=== PATIENT | female | born 1965 | race Caucasian/White ===

== ENCOUNTER 2024-01-07 10:35 | Emergency (ER) | payer OTHER ==
--- NOTE | 2024-01-07 11:10 | ER ---
Nurse's Notes [facility] Name: Gwen Andino Age: 58 yrs Sex: Female : 1965 Arrival Date: 01/07/2024 Time: 10:35 Bed IW3 Private MD: Diagnosis: Cellulitis of left lower limb Presentation: 01/06 10:50 Chief complaint: Patient states: LLE cramping started Monday night. Got swollen, ll1 painful, red, hot to touch since. Sent for further eval. by Urgent Care. Coronavirus screen: Client denies travel out of the [place] in the last 14 days. At this time, the client does not indicate any symptoms associated with coronavirus-19. Ebola Screen: Patient denies travel to an Ebola-affected area in the 21 days before illness onset. Initial Sepsis Screen: Does the patient meet any 2 criteria? No. Patient's initial sepsis screen is negative. Does the patient have a suspected source of infection? No. Patient's initial sepsis screen is negative. Risk Assessment: Do you want to hurt yourself or someone else? Patient reports no desire to harm self or others. Onset of symptoms was January 06, 2024. 10:50 Method Of Arrival: Ambulatory ll1 10:50 Acuity: RISHABH 3 ll1 Triage Assessment: 10:49 General: Appears uncomfortable, ill, Behavior is calm, cooperative, appropriate for ll1 age. General: Reports feeling ill for fatigue for. Pain: Complains of pain in left leg. Neuro: No deficits noted. Cardiovascular: No deficits noted. Derm: Reports redness, pain. Musculoskeletal: Circulation, motion, and sensation intact. Capillary refill < 3 seconds. Historical: - Allergies: 10:52 Sulfa (Sulfonamide Antibiotics); ll1 - PMHx: 10:52 None; ll1 - PSHx: 10:52 Tonsillectomy; section; ll1 - Immunization history:: Adult Immunizations up to date. - Social history:: Smoking status: Patient denies any tobacco usage or history of. Screenin:16 [facility] ED Fall Risk Assessment (Adult) History of falling in the last 3 months, ll1 including since admission No falls in past 3 months (0 pts) Confusion or Disorientation No (0 pts) Intoxicated or Sedated No (0 pts) Impaired Gait No (0 pts) Mobility Assist Device Used No (0 pt) Altered Elimination No (0 pt) Score/Fall Risk Level 0 - 2 = Low Risk Oriented to surroundings, Hourly rounding (assess needs \T\ fall precautionary measures) done. Abuse screen: Denies threats or abuse. Nutritional screening: No deficits noted. Tuberculosis screening: No symptoms or risk factors identified. Assessment: 11:17 Reassessment: No changes from previously documented assessment. Patient and/or family ll1 updated on plan of care and expected duration. Pain level reassessed. Patient is alert, oriented x 3, equal unlabored respirations, skin warm/dry/pink. Vital Signs: 10:50 BP 145 / 96; Pulse 109; Resp 18; Temp 98.9; Pulse Ox 99% ; Weight 92.53 kg; Height 5 ll1 ft. 4 in. ; Pain 8/10; 11:17 BP 141 / 91; Pulse 98; Resp 17; Pulse Ox 99% ; ll1 10:50 Body Mass Index 35.02 (92.53 kg, 162.56 cm) ll1 10:50 Pain Scale: Adult ll1 ED Course: 10:38 Patient arrived in ED. im 10:38 Jo-Ann Monson [facility]-C [facility]. sb4 10:38 Parth Barrett MD is Attending Physician. sb4 10:49 Arm band placed on. ll1 10:52 Triage completed. ll1 11:09 Extremity Venous Uni Ltd US In Process Unspecified. EDMS 11:17 Patient has correct armband on for positive identification. Provided Education on: ll1 finish all prescribed antibiotics. 11:17 No provider procedures requiring assistance completed. Patient did not have IV access ll1 during this emergency room visit. Administered Medications: No medications were administered Medication: 11:17 VIS not applicable for this client. ll1 Outcome: 11:09 Discharge ordered by . sb4 11:17 Discharged to home ambulatory, ll1 11:17 Condition: stable 11:17 Discharge instructions given to patient, Instructed on discharge instructions, follow up and referral plans. Demonstrated understanding of instructions, follow-up care, medications, Prescriptions given X 1, 11:18 Patient left the ED. ll1 Signatures: Dispatcher [employer] EDMS Yamil Van RN RN ll1 Jo-Ann Monson PA-C PA-C sb4 Angela Guerreor im Corrections: (The following items were deleted from the chart) 10:52 10:50 BP 145 / 96; Pulse 109bpm; Resp 18bpm; Pulse Ox 99%; Temp 98.9F; Pain 8/10, ll1 Adult; ll1
--- NOTE | 2024-01-07 11:10 | EDPHYS ---
Physician Documentation [facility] Name: Gwen Andino Age: 58 yrs Sex: Female : 1965 Arrival Date: 01/07/2024 Time: 10:35 Bed IW3 Private MD: ED Physician Parth Barrett HPI: 01/06 10:55 This 58 yrs old Female presents to ER via Ambulatory with complaints of Leg Swelling, sb4 Leg redness. 10:55 Left lower leg swelling and redness began yesterday. States that she initially started sb4 having cramps in her lower leg on Monday and the redness began Monday. She went to urgent care this morning and they sent her here to have an ultrasound to rule out DVT. She denies any recent travel or prolonged immobilization. She is not a smoker. States that her father did have a blood clot but she has no personal history of clots. Denies any chest pain or shortness of breath. Historical: - Allergies: 10:52 Sulfa (Sulfonamide Antibiotics); ll1 - PMHx: 10:52 None; ll1 - PSHx: 10:52 Tonsillectomy; section; ll1 - Immunization history:: Adult Immunizations up to date. - Social history:: Smoking status: Patient denies any tobacco usage or history of. ROS: 10:55 Constitutional: Negative for fever, chills, and weight loss, sb4 10:55 Skin: Positive for erythema, swelling, of the left leg, 10:55 All other systems are negative, Exam: 10:55 Constitutional: This is a well developed, well nourished patient who is awake, alert, sb4 and in no acute distress. Head/Face: Normocephalic, atraumatic. Eyes: Extra-ocular motions intact. Periorbital areas with no swelling, redness, or edema. 10:55 Musculoskeletal/extremity: DVT Exam: pain, swelling, tenderness, erythema, increased warmth, 10:55 Skin: cellulitis, that is moderate, on the lateral aspect of left calf, left lateral ankle, lateral aspect of left foot, left calf, left Achilles, medial aspect of left calf, left medial ankle, medial aspect of left foot, left powell, anterior aspect of left ankle and dorsum of left foot, Vital Signs: 10:50 BP 145 / 96; Pulse 109; Resp 18; Temp 98.9; Pulse Ox 99% ; Weight 92.53 kg; Height 5 ll1 ft. 4 in. ; Pain 8/10; 11:17 BP 141 / 91; Pulse 98; Resp 17; Pulse Ox 99% ; ll1 10:50 Body Mass Index 35.02 (92.53 kg, 162.56 cm) ll1 10:50 Pain Scale: Adult ll1 MDM: 10:47 Patient medically screened. sb4 10:55 Differential diagnosis: DVT, cellulitis. sb4 11:12 Data reviewed: vital signs, nurses notes, radiologic studies, and as a result, I will sb4 discharge patient. Counseling: I had a detailed discussion with the patient and/or guardian regarding the historical points, exam findings, and any diagnostic results supporting the discharge/admit diagnosis, radiology results, to return to the emergency department if symptoms worsen or persist or if there are any questions or concerns that arise at home. 01/06 10:52 Order name: Extremity Venous Uni Ltd sb4 Administered Medications: No medications were administered Disposition Summary: 01/07/24 11:09 Discharge Ordered Notes: Location: Home sb4 Problem: new sb4 Symptoms: are unchanged sb4 Condition: Stable sb4 Diagnosis - Cellulitis of left lower limb sb4 Followup: sb4 - With: Emergency Department - When: As needed - Reason: Trouble breathing, Worsening of condition Discharge Instructions: - Discharge Summary Sheet sb4 - Cellulitis, Adult, [id number] sb4 Forms: - Thank You Letter sb4 - Antibiotic Education sb4 - Patient Portal Instructions sb4 - Leadership Thank You Letter sb4 Prescriptions: - Doxycycline Hyclate 100 mg Oral Tablet - take 1 tablet ORAL route every 12 hours; 20 tablet; Refills: 0, Product sb4 Selection Permitted Signatures: Dispatcher [employer] [facility] Yamil Van RN RN ll1 Jo-Ann Monson PA-C PAAdriana sb4 Corrections: (The following items were deleted from the chart) 10:53 10:53 Extremity Venous Uni Ltd+[email or web address] ordered. [facility] 11:16 10:59 ED course: ultrasound publication designer only. I called publication designer provider directly, sent sb4 straight to voice mail, voice mail box full. sent text. awaiting reply.. sb4
--- NOTE | 2024-01-07 11:18 | RAD REPORT ---
EXAM DESCRIPTION: US - Extremity Venous Uni Ltd - 01/07/2024 11:08 am CLINICAL HISTORY: Left leg swelling, redness pain COMPARISON: None. TECHNIQUE: Real-time sonographic evaluation of the left lower extremity deep venous system was perfo rmed. FINDINGS: Normal compressibility, flow augmentation, phasic flow and spontaneous flow is identified in the left lower extremity deep venous system. No intraluminal filling defects seen. IMPRESSION: No DVT in the left lower extremity.
[2024-01-07 12:14] VITALS: BP 141/91; TEMP 98.9; O2SAT 99
== END 2024-01-07 11:18 | disposition home or self-care (01) ==
LOC: ER 10:35
DX: L03.116 Cellulitis of left lower limb (principal); Z88.2 Allergy status to sulfonamides
CPT/HCPCS: 93971; 99283

== ENCOUNTER 2024-01-09 09:17 | Inpatient (IN) | payer OTHER ==
[2024-01-09] MEDS ORDERED: VANCOMYCIN 1 GM/VIAL ONE ×2 (09:56→13:33)
[2024-01-09] MEDS ORDERED: NA CHLORIDE 0.9% 250 ML ONE ×2 (09:57→13:34)
[2024-01-09 10:07] LABS: Absolute Eosinophils 0.2 K/uL (0-0.5); Absolute Lymphocytes (CBC) 1.5 K/uL (0.7-4.9); Absolute Monocytes 0.8 K/uL (0.1-1.3); Absolute Neutrophil 7.7 K/uL (1.8-8.0); Basophils % 0.3 % (0-1.3); Eosinophils % 1.8 % (0-4.4); Hematocrit 42.8 % (36.0-45.0); Hemoglobin 14.6 g/dL (12.0-15.0); Lymphocytes % 14.5 % (15.3-44.8); MCH 30.9 pg (27.0-35.0); MCHC 34.1 g/dL (32.0-36.0); MCV 90.5 fL (80-100); MPV 7.5 fL (7.6-11.3); Neutrophils % 75.4 % (41.7-73.7); Nucleated Red Blood Cells % 0.1 % (0-0); Platelets 235 thou/uL (152-406); RBC Red Blood Cell Count 4.73 M/uL (3.86-4.86); Red Cell Distribution Width 12.7 % (12.1-15.2)
[2024-01-09 10:25] LABS: Albumin 3.1 g/dL (3.4-5.0); Albumin/Globulin Ratio 0.7 (1.1-1.8); Anion Gap 9.4 mEq/L (5.0-15.0); Bilirubin Total 0.4 mg/dL (0.2-1.0); Globulin 4.6 g/dL (2.3-3.5); Potassium 3.4 mEq/L (3.5-5.1); Protein, Total 7.7 g/dL (6.4-8.2)
[2024-01-09 10:30] LABS: PT Prothrombin Time 11.7 SECONDS (9.5-12.5); PTT, Activated Partial Thromb 31.8 SECONDS (24.3-36.9); Protime INR 1.07
--- NOTE | 2024-01-09 11:04 | ER ---
Nurse's Notes [facility] Name: Gwen Andino Age: 58 yrs Sex: Female : 1965 Arrival Date: 01/09/2024 Time: 09:17 Bed 17 Private MD: Diagnosis: Cellulitis left lower extremity Presentation: 01/08 09:25 Chief complaint: Patient states: Seen Monday for leg swelling and redness, back today rs5 for worsening symptoms. 09:25 Coronavirus screen: At this time, the client does not indicate any symptoms associated rs5 with coronavirus-19. Ebola Screen: No symptoms or risks identified at this time. Initial Sepsis Screen: Does the patient meet any 2 criteria? HR > 90 bpm. Yes Does the patient have a suspected source of infection? Yes:. Risk Assessment: Do you want to hurt yourself or someone else? Patient reports no desire to harm self or others. Onset of symptoms was January 09, 2024. 09:25 Method Of Arrival: Wheelchair rs5 09:25 Acuity: RISHABH 3 rs5 Historical: - Allergies: 09:44 Sulfa (Sulfonamide Antibiotics); rs5 - PMHx: 09:44 None; rs5 - PSHx: 09:44 section; Tonsillectomy; rs5 - Immunization history:: Adult Immunizations up to date. - Infectious Disease History:: Denies. - Social history:: Smoking status: Patient denies any tobacco usage or history of. Screenin:25 [facility] ED Fall Risk Assessment (Adult) History of falling in the last 3 months, rs5 including since admission No falls in past 3 months (0 pts) Confusion or Disorientation No (0 pts) Intoxicated or Sedated No (0 pts) Impaired Gait No (0 pts) Mobility Assist Device Used No (0 pt) Altered Elimination No (0 pt) Score/Fall Risk Level 0 - 2 = Low Risk Oriented to surroundings, Maintained a safe environment. Abuse screen: Denies threats or abuse. Nutritional screening: No deficits noted. Tuberculosis screening: No symptoms or risk factors identified. Assessment: 09:25 General: Appears in no apparent distress. uncomfortable, Behavior is calm, cooperative. rs5 Pain: Complains of pain in left leg Pain currently is 2 out of 10 on a pain scale. Quality of pain is described as aching, Is continuous. Neuro: Level of Consciousness is awake, alert, obeys commands, Oriented to person, place, time, situation, Intact. Cardiovascular: Patient's skin is warm and dry. Rhythm is regular. Respiratory: Airway is patent Respiratory effort is even, unlabored, Respiratory pattern is regular, symmetrical. GI: Abdomen is round non-distended, Abd is soft and non tender X 4 quads. : No signs and/or symptoms were reported regarding the genitourinary system. EENT: No signs and/or symptoms were reported regarding the EENT system. Derm: Skin is intact, Skin is pink, warm \T\ dry. Musculoskeletal: Capillary refill < 3 seconds, is brisk, in bilateral fingers. toes. swelling and redness noted to left leg. 12:30 General: Appears uncomfortable, well groomed, well developed, well nourished, Behavior me1 is calm, cooperative, appropriate for age. Pain: Complains of pain in left leg Pain currently is 2 out of 10 on a pain scale. Quality of pain is described as aching, Is continuous. Neuro: Level of Consciousness is awake, alert, obeys commands, Oriented to person, place, time, situation, Appropriate for age. Cardiovascular: Patient's skin is warm and dry. Respiratory: Airway is patent Respiratory effort is even, unlabored, Respiratory pattern is regular, symmetrical. GI: Abdomen is round non-distended, Abd is soft and non tender X 4 quads. : No signs and/or symptoms were reported regarding the genitourinary system. EENT: No signs and/or symptoms were reported regarding the EENT system. Derm: Skin Skin is pink, warm \T\ dry. Wound noted left leg Wound is edematous, red, warm to LLE. Musculoskeletal: Capillary refill < 3 seconds, red, warm, edematous to LLE. 13:45 Reassessment: No changes from previously documented assessment. rs5 15:01 Reassessment: Patient and/or family updated on plan of care and expected duration. Pain rs5 level reassessed. Patient is alert, oriented x 3, equal unlabored respirations, skin warm/dry/pink. Vital Signs: 09:25 BP 136 / 93; Pulse 101; Resp 18; Pulse Ox 99% on R/A; rs5 11:18 BP 133 / 87; Pulse 94; Resp 18; Pulse Ox 98% on R/A; rs5 12:06 Weight 92.53 kg; Height 5 ft. 4 in. ; me1 13:00 BP 124 / 79; Pulse 101; Resp 16; Pulse Ox 98% on R/A; me1 14:00 BP 135 / 84; Pulse 96; Resp 19; Pulse Ox 100% on R/A; me1 15:00 BP 137 / 97; Pulse 103; Resp 20; Pulse Ox 99% on R/A; me1 12:06 Body Mass Index 35.02 (92.53 kg, 162.56 cm) me1 ED Course: 09:21 Patient arrived in ED. rg4 09:22 Jarek Longoria MD is Attending Physician. rt 09:25 No provider procedures requiring assistance completed. rs5 09:25 Patient has correct armband on for positive identification. Placed in gown. Bed in low rs5 position. Call light in reach. Side rails up X2. 09:41 Kyaw Duncan RN is Primary Nurse. rs5 09:44 Triage completed. rs5 09:55 Initial lab(s) drawn, by me, sent to lab. First set of blood cultures drawn by me. bc6 10:01 Inserted saline lock: 20 gauge in right antecubital area, using aseptic technique. bc6 Blood collected. 11:03 Bladimir Alfaro is Hospitalizing Provider. rt 15:15 Arm band placed on. me1 15:23 Patient admitted, IV remains in place. me1 15:23 Provided Education on: POC. Verbalized understanding. . me1 Administered Medications: 10:05 Drug: vancoMYCIN IVPB 1 grams IVPB once over 2 hrs Route: IVPB; Infused Over: 2 hrs; rs5 Site: left antecubital; 15:41 Follow up: Response: No adverse reaction; IV Status: Completed infusion me1 Medication: 10:00 VIS not applicable for this client. rs5 Outcome: 11:03 Decision to Hospitalize by Provider. rt 15:22 Admitted to Med/surg accompanied by emre, via stretcher, room 232, with chart, Report me1 called to faxed report. Confirmed receipt with ANDREA Roberto at 15:15 15:22 Condition: stable 15:22 Instructed on the need for admit, 16:05 Patient left the ED. rs5 Signatures: Priti Veloz rg4 Jarek Longoria MD MD rt Kyaw Duncan, RN RN rs5 Vannesa Stark bc6 Naima Thurston RN RN me1
--- NOTE | 2024-01-09 11:04 | EDPHYS ---
Physician Documentation [facility] Name: Gwen Andino Age: 58 yrs Sex: Female : 1965 Arrival Date: 01/09/2024 Time: 09:17 Bed 17 Private MD: ED Physician Jarek Longoria HPI: 01/08 09:37 This 58 yrs old Female presents to ER via Unassigned with complaints of Leg Swelling. rt 09:37 Patient was seen in the ED about 2 days ago for a left lower extremity redness, rt swelling, had a negative DVT ultrasound was prescribed doxycycline. Patient states that the area of redness has not increased, however, that her swelling and redness has increased. Patient denies radiating pain. Is involving the lower extremity from just distal to the knee down to the foot. Denies fever, chills, acute complaints, symptoms are moderate in severity, no other aggravating alleviating factors.. Historical: - Allergies: 09:44 Sulfa (Sulfonamide Antibiotics); rs5 - PMHx: 09:44 None; rs5 - PSHx: 09:44 section; Tonsillectomy; rs5 - Immunization history:: Adult Immunizations up to date. - Infectious Disease History:: Denies. - Social history:: Smoking status: Patient denies any tobacco usage or history of. ROS: 09:37 Constitutional: Negative for fever, chills, and weight loss, Cardiovascular: Negative rt for chest pain, palpitations, and edema, Respiratory: Negative for shortness of breath, cough, wheezing, and pleuritic chest pain, Abdomen/GI: Negative for abdominal pain, nausea, vomiting, diarrhea, and constipation, Neuro: Negative for headache, weakness, numbness, tingling, and seizure, Psych: Negative for depression, anxiety, suicide ideation, homicidal ideation, and hallucinations, 09:37 MS/extremity: Positive for pain, swelling, 09:37 Skin: Positive for cellulitis, erythema, Exam: 09:37 Constitutional: This is a well developed, well nourished patient who is awake, alert, rt and in no acute distress. Head/Face: Normocephalic, atraumatic. Chest/axilla: Normal chest wall appearance and motion. Nontender with no deformity. No lesions are appreciated. Cardiovascular: Regular rate and rhythm with a normal S1 and S2. No gallops, murmurs, or rubs. Normal PMI, no JVD. No pulse deficits. Respiratory: Lungs have equal breath sounds bilaterally, clear to auscultation and percussion. No rales, rhonchi or wheezes noted. No increased work of breathing, no retractions or nasal flaring. Abdomen/GI: Soft, non-tender, with normal bowel sounds. No distension or tympany. No guarding or rebound. No evidence of tenderness throughout. Neuro: Awake and alert, GCS 15, oriented to person, place, time, and situation. Cranial nerves II-XII grossly intact. Motor strength 5/5 in all extremities. Sensory grossly intact. Cerebellar exam normal. Normal gait. Psych: Awake, alert, with orientation to person, place and time. Behavior, mood, and affect are within normal limits. 09:37 Musculoskeletal/extremity: As per skin exam, pulses, motor, sensation intact, no crepitus. 09:37 Skin: Swelling, erythema from just distal to the knee distal to the foot, no appreciable abscess.. 10:00 ECG was reviewed by the Attending Physician. rt Vital Signs: 09:25 BP 136 / 93; Pulse 101; Resp 18; Pulse Ox 99% on R/A; rs5 11:18 BP 133 / 87; Pulse 94; Resp 18; Pulse Ox 98% on R/A; rs5 12:06 Weight 92.53 kg; Height 5 ft. 4 in. ; me1 13:00 BP 124 / 79; Pulse 101; Resp 16; Pulse Ox 98% on R/A; me1 14:00 BP 135 / 84; Pulse 96; Resp 19; Pulse Ox 100% on R/A; me1 15:00 BP 137 / 97; Pulse 103; Resp 20; Pulse Ox 99% on R/A; me1 12:06 Body Mass Index 35.02 (92.53 kg, 162.56 cm) me1 MDM: 09:29 Patient medically screened. rt 11:04 Differential Diagnosis Cellulitis. Data reviewed: vital signs, nurses notes, lab test rt result(s), EKG, radiologic studies. Consideration of Admission/Observation Patient was admitted/placed on observation. Management of patient was discussed with the following: Hospitalist: Agrees to admit. I considered the following discharge prescriptions or medication management in the emergency department Medications were administered in the Emergency Department. See MAR. Test considered but Not performed: Ultrasound Patient had a recent ultrasound that was negative for DVT, repeat ultrasound is not needed. Counseling: I had a detailed discussion with the patient and/or guardian regarding the historical points, exam findings, and any diagnostic results supporting the discharge/admit diagnosis, lab results, the need for further work-up and treatment in the hospital. 01/08 09:33 Order name: Blood Culture Adult (2) rt 01/08 09:33 Order name: CBC with Diff; Complete Time: 10:35 rt 01/08 09:33 Order name: CMP; Complete Time: 10:35 rt 01/08 09:33 Order name: Lactate w/ 2H reflex if indic.; Complete Time: 10:35 rt 01/08 09:33 Order name: Protime (+inr); Complete Time: 10:35 rt 01/08 09:33 Order name: Ptt, Activated; Complete Time: 10:35 rt 01/08 11:44 Order name: Urinalysis w/ reflexes EDMS / 11:44 Order name: Vancomycin Level Trough EDMS 01/08 11:44 Order name: Basic Metabolic Panel EDMS 01/08 11:44 Order name: Basic Metabolic Panel EDMS 01/08 11:44 Order name: Basic Metabolic Panel EDMS / 11:44 Order name: Basic Metabolic Panel EDMS / 11:44 Order name: CBC with Automated Diff EDMS / 11:44 Order name: CBC with Automated Diff EDMS / 11:44 Order name: CBC with Automated Diff EDMS / 11:44 Order name: CBC with Automated Diff EDMS / 11:44 Order name: Magnesium EDMS / 11:44 Order name: Magnesium EDMS / 11:44 Order name: Magnesium EDMS / 11:44 Order name: Magnesium EDMS / 11:44 Order name: Phosphorus EDMS / 11:44 Order name: Phosphorus EDMS / 11:44 Order name: Phosphorus EDMS / 11:44 Order name: Phosphorus EDMS 04/ 09:33 Order name: EKG; Complete Time: 09:34 rt 01/08 09:33 Order name: Accucheck; Complete Time: 09:54 rt 01/08 09:33 Order name: Cardiac monitoring; Complete Time: 09:54 rt 01/08 09:33 Order name: EKG - Nurse/Tech; Complete Time: 09:54 rt 01/08 09:33 Order name: IV Saline Lock - Large Bore; Complete Time: 09:54 rt 01/08 09:33 Order name: Labs collected and sent; Complete Time: 09:54 rt 01/08 09:33 Order name: O2 Per Protocol; Complete Time: 09:54 rt 01/08 09:33 Order name: O2 Sat Monitoring; Complete Time: 09:54 rt 01/08 09:33 Order name: Vital Signs; Complete Time: 09:54 rt 01/08 10:11 Order name: Labs - recollect needed: recollect blue top; Complete Time: 10:15 bd EC:00 Rate is 102 beats/min. Rhythm is regular, Sinus tachycardia with No ectopy. QRS [place] is rt Normal. RI interval is normal. QRS interval is normal. QT interval is normal. No Q waves. T waves are Normal. No ST changes noted. Interpreted by me. Administered Medications: 10:05 Drug: vancoMYCIN IVPB 1 grams IVPB once over 2 hrs Route: IVPB; Infused Over: 2 hrs; rs5 Site: left antecubital; 15:41 Follow up: Response: No adverse reaction; IV Status: Completed infusion me1 Disposition Summary: 01/09/24 11:03 Hospitalization Ordered Notes: Hospitalization Status: Inpatient Admission rt Provider: Bladimir Alfaro rt Condition: Stable rt Problem: new rt Symptoms: are unchanged rt Bed/Room Type: Standard rt Location: Telemetry/MedSurg (Inpatient)(01/09/24 14:37) bd Room Assignment: 232(01/09/24 15:15) bd Diagnosis - Cellulitis left lower extremity rt Forms: - Medication Reconciliation Form rt - SBAR form rt - Leadership Thank You Letter rt Signatures: Dispatcher [employer] Lee Ann Merida bd Audrey Rose, RN RN kb3 Jarek Longoria MD MD rt Kyaw Duncan RN RN rs5 Naima Thurston RN me1 Corrections: (The following items were deleted from the chart) 12:17 11:03 Telemetry/MedSurg (Inpatient) rt kb3 12:17 11:03 rt kb3 14:37 12:17 [facility] ER HOLD kb3 bd 14:37 12:17 ERHOLD- kb3 bd 15:15 14:37 220 bd bd
[2024-01-09] MEDS: CLINDAMYCIN 600MG/D5W 50 ML IV SCH (12:00)
[2024-01-09] MEDS: VANCOMYCIN 1 GM in NA CHLORIDE 0.9% 250 ML IVPB SCH (13:00)
[2024-01-09] MEDS ORDERED: CLINDAMYCIN 600MG/D5W 50 ML IV ONE (13:33)
[2024-01-09 13:55] LABS: Specific Gravity 1.014 (1.005-1.030); Sqamous Epithelial <5 /HPF (None Seen); Urine Bacteria <20 /HPF (<20); Urine Bilirubin NEGATIVE (Negative); Urine Blood Negative (Negative); Urine Clarity Turbid (Clear); Urine Color Light-Yellow (Yellow); Urine Culture Reflex Order NOT NEEDED; Urine Glucose NEGATIVE (Negative); Urine Ketones 1+ (Negative); Urine Microscopic Reflex YN ORDER UMIC; Urine Mucus Slight /HPF (None Seen); Urine Nitrite NEGATIVE (Negative); Urine Protein TRACE (Negative); Urine RBC <5 /HPF (None Seen); Urine Urobilinogen Normal (Normal); Urine WBC <5 /HPF (<5); Urine pH 5.5 (5.0-7.0)
[2024-01-09 16:29] VITALS: BMI 35.0
[2024-01-09] MEDS: HEPARIN 5000 UNIT/ML 1 ML VIAL SQ SCH (17:14)
--- NOTE | 2024-01-09 17:47 | P.HP ---
Certification for Inpatient Patient admitted to: Observation With expected LOS: <2 Midnights Patient will require the following post-hospital care: None Practitioner: I am a practitioner with admitting privileges, knowledge of patient current condition, hospital course, and medical plan of care. Services: Services provided to patient in accordance with Admission requirements found in Title 42 Section 412.3 of the Code of Federal Regulations Patient History Date of Service: 01/09/24 Reason for admission: LLE cellulitus History of Present Illness: Gwen Andino is a 58-year-old female with no significant past medical history who presents to the ED with chief complaint of left lower extremity swelling and increased erythema. She reports coming to the ED a few days ago and being discharged with doxycycline. While being compliant with this medication she has had increased swelling, erythema, and pain while walking. No blood clot seen on extremity venous study performed 01/07/2024. On examination pulses are faint to left lower extremity but present. Erythema and blisters noted to skin to left lower extremity. While in the ED she was given vancomycin. Initial vitals BP 136 / 93; Pulse 101; Resp 18; Pulse Ox 99% on R/A. Laboratory evaluation significant for potassium 3.4, BUN/creatinine 16/1.13, GFR 57, serum glucose 122. Gwen will be admitted to hospitalist service for further evaluation and treatment of left lower extremity cellulitis. Allergies Sulfa (Sulfonamide Antibiotics) Allergy (Unknown, Unverified 01/09/24 12:07) UNKNOWN Home Medications: Levocetirizine Dihydrochloride [Xyzal] 5 mg PO BEDTIME 01/09/24 - Past Medical/Surgical History Diabetic: No -: -: tonsilectomy - Family History Mother -: Cancer Father -: Heart disease, Diabetes, Cancer - Social History Smoking Status: Never smoker Alcohol use: No CD- Drugs: No Caffeine use: Yes Place of Residence: Home Review of Systems Musculoskeletal: Leg Pain (Left), Foot Pain (left) Physical Examination - Vital Signs Temperature: 98.3 F Blood Pressure: 136/83 Pulse: 95 Respirations: 18 Pulse Ox (%): 98 - Physical Exam General: Alert, In no apparent distress, Oriented x3 HEENT: Atraumatic, Normocephalic, PERRLA Neck: Supple, 2+ carotid pulse no bruit Respiratory: Clear to auscultation bilaterally, Normal air movement Cardiovascular: Normal pulses, Regular rate/rhythm, Normal S1 S2 Capillary refill: <2 Seconds Gastrointestinal: Normal bowel sounds, Hypoactive, Soft and benign Musculoskeletal: Erythema (LLE), Tenderness (LLE), Warmth (LLE) Integumentary: Tenderness/swelling (LLE), Erythema (LLE) Neurological: Normal speech, Normal strength at 5/5 x4 extr, Normal tone - Studies Laboratory Data (last 24 hrs) 01/09/24 01/09/24 01/09/24 10:18 09:55 09:55 WBC 10.20 Hgb 14.6 Hct 42.8 Plt Count 235 PT 11.7 INR 1.07 APTT 31.8 Sodium 136 Potassium 3.4 L BUN 16 Creatinine 1.13 H Glucose 122 H Total Bilirubin 0.4 AST 19 ALT 31 Alkaline Phosphatase 51 Assessment and Plan - Plan Assessment and plan Left lower extremity cellulitis failed outpatient treatment Venous study from 01/07/2024 negative for DVT Vancomycin and clindamycin IV antibiotics Gentle IV fluids DANDRE BUN/creatinine 16/1.13, GFR 57 Gentle IV fluids Hypokalemia Potassium 3.4 Trend in a.m. labs Hyperglycemia Serum glucose 122 Trend in a.m. labs DVT PPx Lovenox LOS 2 to 3 days Full code Discharge Plan: Home Plan to discharge in: 48 Hours - Advance Directives Does patient have a Living Will: No Does patient have a Durable POA for Healthcare: No Time Spent Managing Pts Care (In Minutes): 50
[2024-01-09] MEDS: NA CHLORIDE 0.9% 1,000 ML IV SCH (18:44)
[2024-01-10 04:00] LABS: Absolute Eosinophils 0.2 K/uL (0-0.5); Absolute Lymphocytes (CBC) 1.8 K/uL (0.7-4.9); Absolute Neutrophil 5.9 K/uL (1.8-8.0); Basophils % 0.3 % (0-1.3); Eosinophils % 2.8 % (0-4.4); Hematocrit 37.4 % (36.0-45.0); Lymphocytes % 19.9 % (15.3-44.8); MCH 31.2 pg (27.0-35.0); MCHC 34.8 g/dL (32.0-36.0); MCV 89.8 fL (80-100); MPV 7.2 fL (7.6-11.3); Monocytes % 10.7 % (3.3-12.3); Neutrophils % 66.3 % (41.7-73.7); Nucleated Red Blood Cells % 0.1 % (0-0); Platelets 235 thou/uL (152-406); RBC Red Blood Cell Count 4.17 M/uL (3.86-4.86); Red Cell Distribution Width 12.8 % (12.1-15.2)
[2024-01-10 04:09] LABS: Anion Gap 8.9 mEq/L (5.0-15.0); Magnesium 2.2 mg/dL (1.6-2.4); Phosphorus 3.1 mg/dL (2.5-4.9); Potassium 3.9 mEq/L (3.5-5.1)
--- NOTE | 2024-01-10 07:08 | P.PN ---
Date of Service: 01/10/24 Subjective Awake and feeling well this morning Redness improved significantly in the foot and upper tibia ROS 10 point ROS as noted above, otherwise negative Physical Exam General: Alert and oriented x 3, NAD HEENT: Atraumatic, Normocephalic, PERRLA Neck: Supple, 2+ carotid pulse no bruit Respiratory: Clear to auscultation bilaterally, symmetrical chest wall movement on room air Cardiovascular: RRR, S1 S2 present, no murmur noted Capillary refill: <2 Seconds Gastrointestinal: Normal bowel sounds, Hypoactive, Soft and benign on palpation Musculoskeletal: Erythema (LLE), Tenderness (LLE), Warmth (LLE), faint pulse both dorsalis pedis/posterior tibialis Integumentary: Tenderness/swelling (LLE), Erythema (LLE) Neurological: Normal speech, Normal strength at 5/5 x4 extr, Normal tone Vitals Reviewed Problem list Left lower extremity cellulitis failed outpatient treatment DANDRE Hypokalemia Hyperglycemia Assessment and Plan - Plan Assessment and plan Left lower extremity cellulitis failed outpatient treatment Venous study from 01/07/2024 negative for DVT Continue vancomycin and clindamycin IV antibiotics Gentle IV fluids DANDRE BUN/creatinine 12/0.84, GFR 81 Gentle IV fluids Hypokalemia- resolved Potassium 3.9 Trend in a.m. labs Hyperglycemia Serum glucose 109 Trend in a.m. labs DVT PPx Lovenox LOS 2 to 3 days Full code Discharge Plan: Home Plan to discharge in: 48 Hours <Lisa Winn - Last Filed: 01/10/24 18:04> Patient seen and examined. Plan of care discussed with Ms. Winn. Cellulitis of left lower extremity. Patient continues swelling and redness are improving. Continue IV vancomycin and clindamycin Added IV Rocephin for gram-negative coverage. Keep lower extremity elevated <jacqueline carmichael - Last Filed: 01/10/24 18:49>
[2024-01-10] MEDS ORDERED: MORPHINE 2 MG/ML SYR IV PRN (09:36)
[2024-01-10] MEDS: HYDROCODONE/APAP 7.5/325 MG TAB PO PRN (09:57)
[2024-01-10] MEDS: POTASSIUM CL SA 10 MEQ TAB PO ONE (09:59)
[2024-01-10] MEDS: VANCOMYCIN 1.5 GM in NA CHLORIDE 0.9% 500 ML IVPB SCH (10:46)
[2024-01-10] MEDS: CEFTRIAXONE 1,000 MG in NA CHLORIDE 0.9% 50 ML IVPB SCH (16:20)
[2024-01-10] MEDS: ACETAMINOPHEN 325 MG TABLET PO PRN (17:43)
[2024-01-10] MEDS ORDERED: KETOROLAC 10 MG TAB PO PRN (19:32)
[2024-01-10] MEDS: IBUPROFEN 400 MG TAB PO PRN (22:00)
[2024-01-11 04:08] LABS: Absolute Basophils 0.1 K/uL (0-0.5); Absolute Eosinophils 0.1 K/uL (0-0.5); Absolute Lymphocytes (CBC) 1.9 K/uL (0.7-4.9); Absolute Monocytes 0.9 K/uL (0.1-1.3); Absolute Neutrophil 7.5 K/uL (1.8-8.0); Basophils % 0.5 % (0-1.3); Hematocrit 38.1 % (36.0-45.0); Hemoglobin 12.9 g/dL (12.0-15.0); Lymphocytes % 18.3 % (15.3-44.8); MCH 30.6 pg (27.0-35.0); MCHC 33.9 g/dL (32.0-36.0); MCV 90.2 fL (80-100); MPV 7.5 fL (7.6-11.3); Monocytes % 8.3 % (3.3-12.3); Neutrophils % 71.9 % (41.7-73.7); Platelets 267 thou/uL (152-406); RBC Red Blood Cell Count 4.22 M/uL (3.86-4.86); Red Cell Distribution Width 12.8 % (12.1-15.2)
[2024-01-11 04:09] LABS: Anion Gap 7.4 mEq/L (5.0-15.0); Magnesium 2.3 mg/dL (1.6-2.4); Phosphorus 3.9 mg/dL (2.5-4.9); Potassium 3.4 mEq/L (3.5-5.1)
[2024-01-11] MEDS: POTASSIUM CL SA 10 MEQ TAB PO ONE (08:06)
--- NOTE | 2024-01-11 09:49 | P.PN ---
Patient seen and examined. Plan of care discussed with Ms. Winn. Patient left leg swelling has not improved from yesterday. The erythema is receding but more red. Patient is complaining of intermittent pain. Plan: Continue IV Rocephin, clindamycin and vancomycin. Infectious disease consult Trial of IV Lasix for edema. Pain management with Toradol Ambien as needed for insomnia. DVT prophylaxis. <jacqueline carmichael - Last Filed: 01/11/24 16:17> Date of Service: 01/11/24 Subjective Awake and feeling well, c/o a headache yesterday, [place] caused hallucinations Redness improving, now with hemotoma at medial mallelous ROS 10 point ROS as noted above, otherwise negative Physical Exam General: AAOx 3, NAD, calm and cooperative HEENT: Atraumatic, Normocephalic, PERRLA Neck: Supple, 2+ carotid pulse no bruit Respiratory: Clear to auscultation bilaterally, nonlabored breathing, on room air Cardiovascular: S1 S2 present, regular rate and rhythm, no murmur noted Capillary refill: <2 Seconds Gastrointestinal: normal active bowel sounds, Soft and benign on palpation, nontender Musculoskeletal: Erythema (LLE), Tenderness (LLE), Warmth (LLE), faint pulse both dorsalis pedis/posterior tibialis Integumentary: Tenderness/swelling (LLE), Erythema (LLE) Neurological: Normal speech, Normal strength at 5/5 x4 extr, Normal tone Vitals Reviewed Problem list Left lower extremity cellulitis failed outpatient treatment DANDRE Hypokalemia Hyperglycemia Assessment and Plan - Plan Assessment and plan Left lower extremity cellulitis failed outpatient treatment Venous study from 01/07/2024 negative for DVT Continue vancomycin, clindamycin, rocephin IV antibiotics Gentle IV fluids Blood cultures- NGTD Toradol lasix BID ANDREA hose elevate LLE with three pillows Infectious Disease consult DANDRE-resolved BUN/creatinine 13/0.76, GFR 91 Gentle IV fluids Hypokalemia Potassium 3.4 Trend in a.m. labs Replete PRN Hyperglycemia Serum glucose 128 Trend in a.m. labs A1C in the AM DVT PPx Lovenox LOS 2 to 3 days Full code Discharge Plan: Home Plan to discharge in: 48 Hours <Lisa Winn - Last Filed: 01/11/24 17:45>
[2024-01-11] MEDS: VANCOMYCIN 1.75 GM in NA CHLORIDE 0.9% 500 ML IVPB SCH (14:50)
[2024-01-11] MEDS: FUROSEMIDE 40 MG/4 ML VIAL IV SCH (15:18)
[2024-01-11] MEDS: KETOROLAC 30 MG/ML INJ IV PRN (15:18)
--- NOTE | 2024-01-11 15:45 | EKG ---
Test Date: 2024-01-09 Test Time: 09:49:32 Reserve Officer: MONCHO MEASUREMENT RESULTS: Intervals: Rate: 102 NH: 136 QRSD: 94 QT: 354 QTc: 461 [place]: P: 48 NH: 136 QRS: 55 T: 39 INTERPRETIVE STATEMENTS: Sinus tachycardia Otherwise normal ECG No previous ECG available for comparison Electronically Signed On 01-11-24 15:40:34 CDT by John Walker
[2024-01-11] MEDS: ZOLPIDEM TARTRATE 5 MG TABLET PO PRN (23:05)
[2024-01-12 03:43] LABS: Absolute Basophils 0.1 K/uL (0-0.5); Absolute Eosinophils 0.3 K/uL (0-0.5); Absolute Lymphocytes (CBC) 2.5 K/uL (0.7-4.9); Absolute Monocytes 0.8 K/uL (0.1-1.3); Absolute Neutrophil 6.9 K/uL (1.8-8.0); Basophils % 0.8 % (0-1.3); Eosinophils % 2.6 % (0-4.4); Hematocrit 37.7 % (36.0-45.0); Hemoglobin 12.9 g/dL (12.0-15.0); Lymphocytes % 23.4 % (15.3-44.8); MCH 30.8 pg (27.0-35.0); MCHC 34.1 g/dL (32.0-36.0); MCV 90.2 fL (80-100); MPV 7.1 fL (7.6-11.3); Monocytes % 7.1 % (3.3-12.3); Neutrophils % 66.1 % (41.7-73.7); Platelets 283 thou/uL (152-406); RBC Red Blood Cell Count 4.17 M/uL (3.86-4.86)
[2024-01-12 04:03] LABS: Anion Gap 7.9 mEq/L (5.0-15.0); Phosphorus 4.4 mg/dL (2.5-4.9)
[2024-01-12 04:07] LABS: Magnesium 2.1 mg/dL (1.6-2.4); Potassium 3.9 mEq/L (3.5-5.1)
--- NOTE | 2024-01-12 07:49 | P.PN ---
Patient seen and examined. No significant improvement in the left leg swelling and erythema. Blisters are forming with scattered areas of petechia. Change IV Rocephin to IV meropenem Continue IV vancomycin and clindamycin Keep legs elevated Continue IV NS Analgesics as needed Treatment for tinea pedis initiated. <janyjacqueline - Last Filed: 01/12/24 16:48> Date of Service: 01/12/24 Subjective Awake and feeling well, leg elevated No new complaints slow improvement to erythema ROS 10 point ROS as noted above, otherwise negative Physical Exam General: No acute distress, alert and oriented x 3 HEENT: Atraumatic, Normocephalic, PERRLA Neck: Supple, 2+ carotid pulse no bruit Respiratory: Clear to auscultation bilaterally, symmetrical chest wall movement, on room air Cardiovascular: S1 S2 present, RRR, no murmur noted Capillary refill: <2 Seconds Gastrointestinal: normal active bowel sounds, Soft and benign on palpation, nontender Musculoskeletal: Erythema (LLE), Tenderness (LLE), Warmth (LLE), faint pulse both dorsalis pedis/posterior tibialis Integumentary: Tenderness/swelling (LLE), Erythema (LLE) Neurological: Normal speech, Normal strength at 5/5 x4 extr, Normal tone Vitals Reviewed Problem list Left lower extremity cellulitis failed outpatient treatment Tinea Pedis DANDRE Hypokalemia Hyperglycemia Assessment and Plan - Plan Assessment and plan Left lower extremity cellulitis failed outpatient treatment Tinea Pedis Venous study from 01/07/2024 negative for DVT Continue vancomycin, clindamycin, Merrem IV antibiotics (stopped rocephin 01/11) Gentle IV fluids Blood cultures- NGTD Toradol lasix BID ANDREA hose elevate LLE with three pillows Infectious Disease Following Clotrimazole topical BID- 2-4 weeks DANDRE-resolved BUN/creatinine 16/0.94, GFR 70 Gentle IV fluids Hypokalemia Potassium 3.9 Trend in a.m. labs Replete PRN Hyperglycemia Serum glucose 103 Trend in a.m. labs A1C 5.7 DVT PPx Lovenox LOS 2 to 3 days Full code Discharge Plan: Home Plan to discharge in: 48 Hours <Lisa Winn - Last Filed: 01/12/24 18:08>
[2024-01-12] MEDS: POTASSIUM CL SA 10 MEQ TAB PO ONE (08:49)
--- NOTE | 2024-01-12 08:59 | P.CNS ---
Date of Consult: 01/12/24 Reason for Consult: LLE cellulitis Chief Complaint: LLE cellulitus History of Present Illness: Patient is a 59-year-old female with no significant past medical history who presented to the ED on 01/08 with complaints of left lower extremity swelling and increased erythema. Of note she was seen in the ED a few days ago and was discharged home on doxycycline without improvement in symptoms. Lower extremity venous study on 01/06 no evidence of DVT. Patient was started on empiric Rocephin and vancomycin. Infectious disease was consulted. Allergies Sulfa (Sulfonamide Antibiotics) Allergy (Unknown, Verified 01/09/24 20:38) UNKNOWN Home medications list reviewed: Yes Home Medications: Levocetirizine Dihydrochloride [Xyzal] 5 mg PO BEDTIME 01/09/24 - Past Medical/Surgical History Diabetic: No -: -: tonsilectomy - Family History Mother Medical History: Cancer Father Medical History: Heart disease, Diabetes, Cancer - Social History Alcohol use: No CD- Drugs: No Caffeine use: Yes Place of Residence: Home Review of Systems 10-point ROS is otherwise unremarkable Integumentary: As per HPI Physical Examination Temp Pulse Resp BP Pulse Ox 98.1 F 87 17 137/80 98 01/12/24 04:00 01/12/24 04:00 01/12/24 04:00 01/12/24 04:00 01/12/24 04:00 General: Alert, In no apparent distress, Oriented x3 HEENT: Atraumatic, Normocephalic Respiratory: Clear to auscultation bilaterally, Normal air movement Cardiovascular: Regular rate/rhythm, Edema (LLE) Gastrointestinal: Normal bowel sounds, Soft and benign, Non-distended Integumentary: Other (LLE erythema, edema and warmth. Tinea pedis) Neurological: Normal speech, Normal tone, Normal affect Laboratory data - Reviewed Microbiology data - Reviewed Imagings Data: -Reviewed Conclusions/Impression: Problem list Cellulitis of left lower extremity Tinea Pedis Cellulitis of left lower extremity Tinea Pedis -Currently on Rocephin, clindamycin and vancomycin (started 01/08) -Blood cultures no growth to date -No leukocytosis. Afebrile. -Lower extremity venous study 01/06: No DVT in the left lower extremity Recommendations - cellulitis: Slow improvement response, recommend antibiotic therapy for 14 days (01/08-01/22) -Continue current IV antibiotics for now. - Tinea pedis: lamisil topical not available, start on clotrimazole topical BID, continue for 2-4 weeks. - Cleanse foot with mild soap/water, pat dry, then apply clotrimazole topical to left foot/in between toes. BID and PRN. -Keep leg elevated. Receiving Lasix, started 01/10. -Monitor for worsening signs and symptoms of infection Case discussed with Cindy Peña
[2024-01-12] MEDS: CLOTRIMAZOLE 1% CREAM 15 GM TOP SCH (12:16)
[2024-01-12] MEDS: Meropenem 1,000 MG in NA CHLORIDE 0.9% 100 ML IV SCH (12:18)
[2024-01-13 01:06] VITALS: O2SAT 96
[2024-01-13 06:40] LABS: Anion Gap 2.7 mEq/L (5.0-15.0); Potassium 3.7 mEq/L (3.5-5.1)
[2024-01-13] MEDS: POTASSIUM 25 MEQ EFFERV TAB PO ONE (07:58)
--- NOTE | 2024-01-13 12:43 | RAD REPORT ---
EXAM DESCRIPTION: CT - Lower Extremity W/ Cont - 01/13/2024 12:24 pm CLINICAL HISTORY: Cellulitis r/o abscess and gas gangrene COMPARISON: Extremity Venous [facility] dated 01/07/2024 FINDINGS: Diffuse cutaneous skin thickening and subcutaneous edema throughout the left lower extremi ty. Varicose veins noted. No discrete fluid collections. No soft tissue gas identified. No fracture i dentified. IMPRESSION: Skin thickening and subcutaneous edema throughout the left lower extremity without evide nce of an underlying abscess or evidence of a gas-forming infection.
--- NOTE | 2024-01-13 13:19 | P.PN ---
Date of Service: 01/13/24 Subjective Feels well LLE continues to be edematous with blotchy erythema LLE elevated ROS 10 point ROS as noted above, otherwise negative Physical Exam General: No distress noted, alert and oriented x 3, calm HEENT: Atraumatic, Normocephalic, PERRLA Neck: Supple, 2+ carotid pulse no bruit Respiratory: Clear to auscultation bilaterally, nonlabored breathing, on room air Cardiovascular: Regular rate and rhythm, normal S1-S2 noted, no murmur noted Capillary refill: <2 Seconds Gastrointestinal: normal active bowel sounds, Soft and benign on palpation, nontender Musculoskeletal: Erythema (LLE), Tenderness (LLE), Warmth (LLE), faint pulse both dorsalis pedis/posterior tibialis Integumentary: Tenderness/swelling (LLE), Erythema (LLE) Neurological: Normal speech, Normal strength at 5/5 x4 extr, Normal tone Vitals Reviewed Problem list Left lower extremity cellulitis failed outpatient treatment Tinea Pedis DANDRE Hypokalemia Hyperglycemia Assessment and Plan - Plan Assessment and plan Left lower extremity cellulitis failed outpatient treatment Tinea Pedis Venous study from 01/07/2024 negative for DVT Continue vancomycin, clindamycin, Merrem IV antibiotics (stopped rocephin 01/11) Gentle IV fluids Blood cultures- NGTD Toradol lasix BID ANDREA hose elevate LLE with three pillows Kerlix wrapped with Infectious Disease Following Clotrimazole topical BID- 2-[address] left lower extremity reports "Skin thickening and subcutaneous edema throughout the left lower extremity without evidence of an underlying abscess or evidence of a gas-forming infection." DANDRE-resolved BUN/creatinine 20/0.86, GFR 78 Hypokalemia Potassium 3.9 Trend in a.m. labs Replete PRN Hyperglycemia Serum glucose 107 Trend in a.m. labs A1C 5.7 DVT PPx Lovenox LOS 2 to 3 days Full code Discharge Plan: Home Plan to discharge in: 48 Hours
--- NOTE | 2024-01-14 12:29 | P.PN ---
Date of Service: 01/14/24 Subjective Continues to feel well, reports more feeling in her LLE some swelling improvement ROS 10 point ROS as noted above, otherwise negative Physical Exam General: AAOx3, HEENT: Atraumatic, Normocephalic, PERRLA Neck: Supple, 2+ carotid pulse no bruit Respiratory: Clear to auscultation bilaterally, nonlabored breathing, on room air Cardiovascular: RRR, S1S2 present, no murmur noted Capillary refill: <2 Seconds Gastrointestinal: bowel sounds present, Soft and benign on palpation, nontender Musculoskeletal: Erythema (LLE), Tenderness (LLE), Warmth (LLE), faint pulse both dorsalis pedis/posterior tibialis Integumentary: Tenderness/swelling (LLE), Erythema (LLE) Neurological: Normal speech, Normal strength at 5/5 x4 extr, Normal tone Vitals Reviewed Problem list Left lower extremity cellulitis failed outpatient treatment Tinea Pedis DANDRE Hypokalemia Hyperglycemia Assessment and Plan - Plan Assessment and plan Left lower extremity cellulitis failed outpatient treatment Tinea Pedis Venous study from 01/07/2024 negative for DVT Continue vancomycin, clindamycin, Merrem IV antibiotics (stopped rocephin 01/11) Gentle IV fluids Blood cultures- NGTD Toradol lasix BID ANDREA hose elevate LLE with three pillows Kerlix wrapped with Infectious Disease Following Clotrimazole topical BID- 2-[address] left lower extremity reports "Skin thickening and subcutaneous edema throughout the left lower extremity without evidence of an underlying abscess or evidence of a gas-forming infection." DANDRE-resolved BUN/creatinine 17/0.75, GFR 92 Hypokalemia Potassium 4.0 Trend in a.m. labs Replete PRN Hyperglycemia Serum glucose 116 Trend in a.m. labs A1C 5.7 DVT PPx Lovenox LOS 2 to 3 days Full code Discharge Plan: Home Plan to discharge in: 48 Hours <Lisa Winn - Last Filed: 01/14/24 12:22> Patient seen and examined. Plan of care discussed with Ms. Winn. Left lower extremity swelling has improved, more blisters formed formed. CT lower extremity results reviewed-no abscess or gas-forming infection. Continue aggressive antibiotics with IV meropenem, clindamycin and vancomycin Vancomycin trough level is high today, so vancomycin held today. Continue to monitor vancomycin level and resume as appropriate. Kerlix wrap. Keep left lower extremity elevated. <jacqueline carmichael - Last Filed: 01/14/24 15:53>
[2024-01-14] MEDS: VANCOMYCIN 1.75 GM in NA CHLORIDE 0.9% 500 ML IVPB SCH (14:36)
--- NOTE | 2024-01-15 07:49 | P.PN ---
Date of Service: 01/15/24 Subjective Awake and feeling well Edema much improved no new complaints ROS 10 point ROS as noted above, otherwise negative Physical Exam General: AAOx3, NAD HEENT: Atraumatic, Normocephalic, PERRLA Neck: Supple, 2+ carotid pulse no bruit Respiratory: nonlabored breathing, Clear to auscultation bilaterally, on room air Cardiovascular: RRR, S1S2 present, no murmur noted Capillary refill: <2 Seconds Gastrointestinal: Soft and benign, bowel sounds present, nontender Musculoskeletal: Erythema (LLE), Tenderness (LLE), Warmth (LLE), faint pulse both dorsalis pedis/posterior tibialis Integumentary: Tenderness/swelling (LLE), Erythema (LLE) Neurological: Normal speech, Normal strength at 5/5 x4 extr, Normal tone Vitals Reviewed Problem list Left lower extremity cellulitis failed outpatient treatment Tinea Pedis DANDRE Hypokalemia Hyperglycemia Assessment and Plan - Plan Assessment and plan Left lower extremity cellulitis failed outpatient treatment Tinea Pedis -Venous study from 01/07/2024 negative for DVT -Continue vancomycin, clindamycin, Merrem IV antibiotics (End date 01/22) -Gentle IV fluids -Blood cultures- NGTD -Toradol -lasix BID - Tinea pedis: lamisil topical not available, start on clotrimazole topical BID, continue for 2-4 weeks. - Cleanse foot with mild soap/water, pat dry, then apply clotrimazole topical to left foot/in between toes. BID and PRN. - LLE cellulitis: apply xeroform to blistering areas, cover with abd pad and wrap with kerlix elevate LLE with three pillows -Kerlix wrapped -Clotrimazole topical BID- 2-4 weeks -Infectious Disease Following -CT left lower extremity reports "Skin thickening and subcutaneous edema throughout the left lower extremity without evidence of an underlying abscess or evidence of a gas-forming infection." -Discharge PO abx: Ciprofloxacin and doxycyline to end 01/22 DANDRE-resolved -Continue to monitor in AM labs Hypokalemia-resolved -Potassium 4.0 -Trend in a.m. labs -Replete PRN Hyperglycemia -Serum glucose 163 -Trend in a.m. labs -A1C 5.7 DVT PPx heparin LOS 2 to 3 days Full code Discharge Plan: Home Plan to discharge in: 48 Hours
--- NOTE | 2024-01-15 09:09 | P.PN ---
Date of Service: 01/15/24 Infectious Disease Progress Note Chief Complaint: LLE cellulitus Subjective: Patient seen and examined in room. In no apparent distress. No new or worsening complaints at this time. Left lower leg slightly improving. Physical Examination Temp Pulse Resp BP Pulse Ox 97.7 F 100 H 18 133/79 97 01/15/24 04:00 01/15/24 08:48 01/15/24 04:00 01/15/24 08:48 01/15/24 04:00 General: Alert, In no apparent distress, Oriented x3 HEENT: Atraumatic, Normocephalic Respiratory: Clear to auscultation bilaterally, Normal air movement Cardiovascular: Regular rate/rhythm. Edema LLE. Gastrointestinal: Normal bowel sounds, Soft and benign, Non-distended Integumentary: LLE erythema, petechiae, edema and warmth. Tinea pedis. Neurological: Normal speech, Normal tone, Normal affect Laboratory data - Reviewed Microbiology data - Reviewed Imagings Data: -Reviewed Assessment and Plan Problem list Cellulitis of left lower extremity Tinea Pedis Cellulitis of left lower extremity Tinea Pedis -Currently on Meropenem, clindamycin and vancomycin (started 01/08) -Topical clotrimazole for tinea pedis. -Blood cultures no growth to date -Lower extremity venous study 01/06: No DVT in the left lower extremity - CT of left lower leg 01/12: "Skin thickening and subcutaneous edema throughout the left lower extremity without evidence of an underlying abscess or evidence of a gas-forming infection." -No leukocytosis. Afebrile. Recommendations - cellulitis: Slow improvement response, recommend antibiotic therapy for 14 days (01/08-01/22) -Continue current IV antibiotics for now. - consider switch to Ciprofloxacin and Doxycyline PO upon discharge. - Tinea pedis: lamisil topical not available, start on clotrimazole topical BID, continue for 2-4 weeks. - Cleanse foot with mild soap/water, pat dry, then apply clotrimazole topical to left foot/in between toes. BID and PRN. - LLE cellulitis: apply xeroform to blistering areas, cover with abd pad and wrap with kerlix -Keep leg elevated. -Monitor for worsening signs and symptoms of infection Case discussed with Cindy Peña
[2024-01-15 09:14] LABS: Absolute Basophils 0.1 K/uL (0-0.5); Absolute Eosinophils 0.5 K/uL (0-0.5); Absolute Lymphocytes (CBC) 2.2 K/uL (0.7-4.9); Absolute Monocytes 0.7 K/uL (0.1-1.3); Absolute Neutrophil 9.3 K/uL (1.8-8.0); Basophils % 0.5 % (0-1.3); Eosinophils % 3.6 % (0-4.4); Hematocrit 42.8 % (36.0-45.0); Hemoglobin 14.2 g/dL (12.0-15.0); Lymphocytes % 17.5 % (15.3-44.8); MCHC 33.2 g/dL (32.0-36.0); MCV 90.3 fL (80-100); Monocytes % 5.5 % (3.3-12.3); Neutrophils % 72.9 % (41.7-73.7); Nucleated Red Blood Cells % 0.1 % (0-0); Platelets 455 thou/uL (152-406); RBC Red Blood Cell Count 4.75 M/uL (3.86-4.86)
[2024-01-16 04:14] LABS: Absolute Basophils 0.1 K/uL (0-0.5); Absolute Eosinophils 0.5 K/uL (0-0.5); Absolute Lymphocytes (CBC) 2.8 K/uL (0.7-4.9); Absolute Monocytes 0.9 K/uL (0.1-1.3); Absolute Neutrophil 8.3 K/uL (1.8-8.0); Basophils % 0.7 % (0-1.3); Hematocrit 40.9 % (36.0-45.0); Hemoglobin 13.8 g/dL (12.0-15.0); Lymphocytes % 22.2 % (15.3-44.8); MCH 30.5 pg (27.0-35.0); MCHC 33.9 g/dL (32.0-36.0); MCV 90.1 fL (80-100); MPV 6.9 fL (7.6-11.3); Monocytes % 6.9 % (3.3-12.3); Neutrophils % 66.2 % (41.7-73.7); Platelets 424 thou/uL (152-406); RBC Red Blood Cell Count 4.53 M/uL (3.86-4.86); Red Cell Distribution Width 12.6 % (12.1-15.2)
[2024-01-16 04:24] LABS: Anion Gap 7.8 mEq/L (5.0-15.0); Magnesium 2.5 mg/dL (1.6-2.4); Phosphorus 3.7 mg/dL (2.5-4.9); Potassium 3.8 mEq/L (3.5-5.1)
[2024-01-16 05:01] LABS: Band Neutrophils 5 % (0-1); Blood Morphology Comment NOT SEEN (NOT SEEN); Differential Total Cells Count 100; Eosinophils 3 % (0-3); Lymphocytes 21 % (15-42); Monocytes 8 % (0-10); Platelet Estimate ADEQ; Reactive Lymphocytes 1 %; Segmented Neutrophils 61 % (40-80)
--- NOTE | 2024-01-16 09:10 | P.PN ---
Date of Service: 01/16/24 Infectious Disease Progress Note Chief Complaint: LLE cellulitus Subjective: NAD. AXOx3. No new or worsening complaints at this time. Reports LLE pain slightly improving. Physical Examination Temp Pulse Resp BP Pulse Ox 97.2 F 78 18 108/66 97 01/16/24 04:00 01/16/24 04:00 01/16/24 04:00 01/16/24 04:00 01/16/24 04:00 General: Alert, In no apparent distress, Oriented x3 HEENT: Atraumatic, Normocephalic Respiratory: Clear to auscultation bilaterally, Normal air movement Cardiovascular: Regular rate/rhythm. Edema LLE. Gastrointestinal: Normal bowel sounds, Soft and benign, Non-distended Integumentary: LLE erythema, petechia, edema and warmth. Tinea pedis. Neurological: Normal speech, Normal tone, Normal affect Laboratory data - Reviewed Microbiology data - Reviewed Imagings Data: -Reviewed Assessment and Plan Problem list Cellulitis of left lower extremity Tinea Pedis Cellulitis of left lower extremity Tinea Pedis -Currently on Meropenem, clindamycin and vancomycin (started 01/08) -Topical clotrimazole for tinea pedis. -Blood cultures no growth to date -Lower extremity venous study 01/06: No DVT in the left lower extremity - CT of left lower leg 01/12: "Skin thickening and subcutaneous edema throughout the left lower extremity without evidence of an underlying abscess or evidence of a gas-forming infection." -No leukocytosis. Afebrile. Recommendations - cellulitis: Slow improvement response, recommend antibiotic therapy for 14 days (01/08-01/22) -Continue current IV antibiotics for now. - consider switch to Ciprofloxacin and Doxycyline PO x 7 days upon discharge - Tinea pedis: lamisil topical not available, start on clotrimazole topical BID, continue for 2-4 weeks. - Cleanse foot with mild soap/water, pat dry, then apply clotrimazole topical to left foot/in between toes. BID and PRN. - LLE cellulitis: apply xeroform to blistering areas, wrap with kerlix. Dressing to be changed q48H. -Keep leg elevated. -Monitor for worsening signs and symptoms of infection - follow up with PCP as outpatient. Case discussed with Cindy Peña
[2024-01-16] MEDS: POTASSIUM CL SA 10 MEQ TAB PO ONE (09:22)
[2024-01-16 09:44] VITALS: BP 107/72; TEMP 97.4
--- NOTE | 2024-01-16 13:46 | P.DS ---
Admission Date: 01/10/24 Discharge Date: 01/16/24 Disposition: ROUTINE DISCHARGE Discharge Condition: GOOD Reason for Admission: LLE cellulitus Consultations: Infectious disease Dr. Hernandez Brief History of Present Illness: Gwen Andino is a 58-year-old female with no significant past medical history who presents to the ED with chief complaint of left lower extremity swelling and increased erythema. She reports coming to the ED a few days ago and being discharged with doxycycline. While being compliant with this medication she has had increased swelling, erythema, and pain while walking. No blood clot seen on extremity venous study performed 01/07/2024. On examination pulses are faint to left lower extremity but present. Erythema and blisters noted to skin to left lower extremity. While in the ED she was given vancomycin. Hospital Course: Problem list Left lower extremity cellulitis failed outpatient treatment Tinea Pedis DANDRE Hypokalemia Hyperglycemia Patient was admitted to the hospital for left lower extremity cellulitis. DVT had been ruled out. She was treated with IV antibiotics Merrem, clindamycin, vancomycin blood cultures were without growth for 5 days. Patient was seen by infectious disease who recommends additional 2 weeks of oral antibiotics at discharge. Prescription given to patient for: ciprofloxacin 500 mg by mouth twice daily for 14 days Doxycycline 100 mg by mouth twice daily for 14 days Dressing changes should be performed Monday with Xeroform applied to blistering areas covered with ABD pad and wrapped with Kerlix. Please follow-up with your primary care doctor in the next 1 to 2 weeks Return to the hospital/emergency department if you develop fevers, worsening infection and lower extremity Keep left lower extremity elevated is much as possible Vital Signs/Physical Exam: Temp Pulse Resp BP Pulse Ox 97.4 F 92 H 25 H 107/72 95 01/16/24 08:00 01/16/24 08:00 01/16/24 08:00 01/16/24 08:00 01/16/24 08:00 General: Alert, In no apparent distress, Oriented x3 HEENT: Atraumatic, PERRLA Neck: Supple, JVD not distended Respiratory: Clear to auscultation bilaterally, Normal air movement Cardiovascular: Regular rate/rhythm, Normal S1 S2 Gastrointestinal: Normal bowel sounds, No tenderness Musculoskeletal: No tenderness Integumentary: Erythema (Left lower extremity) Neurological: Normal speech, Normal tone, Normal affect Laboratory Data at Discharge: WBC 12.50 thou/uL (4.3-10.9) H 01/16/24 03:40 Hgb 13.8 g/dL (12.0-15.0) 01/16/24 03:40 Hct 40.9 % (36.0-45.0) 01/16/24 03:40 Plt Count 424 thou/uL (152-406) H 01/16/24 03:40 PT 11.7 SECONDS (9.5-12.5) 01/09/24 10:18 INR 1.07 01/09/24 10:18 APTT 31.8 SECONDS (24.3-36.9) 01/09/24 10:18 Sodium 135 mEq/L (136-145) L 01/16/24 03:40 Potassium 3.8 mEq/L (3.5-5.1) 01/16/24 03:40 BUN 25 mg/dL (7-18) H 01/16/24 03:40 Creatinine 0.83 mg/dL (0.55-1.02) 01/16/24 03:40 Glucose 113 mg/dL (74-106) H 01/16/24 03:40 Phosphorus 3.7 mg/dL (2.5-4.9) 01/16/24 03:40 Magnesium 2.5 mg/dL (1.6-2.4) H 01/16/24 03:40 Total Bilirubin 0.4 mg/dL (0.2-1.0) 01/09/24 09:55 AST 19 U/L (15-37) 01/09/24 09:55 ALT 31 U/L (13-56) 01/09/24 09:55 Alkaline Phosphatase 51 U/L (45-117) 01/09/24 09:55 Home Medications: Levocetirizine Dihydrochloride [Xyzal] 5 mg PO BEDTIME 01/09/24 Physician Discharge Instructions: Patient was admitted to the hospital for left lower extremity cellulitis. DVT had been ruled out. She was treated with IV antibiotics Merrem, clindamycin, vancomycin blood cultures were without growth for 5 days. Patient was seen by infectious disease who recommends additional 2 weeks of oral antibiotics at discharge. Prescription given to patient for: ciprofloxacin 500 mg by mouth twice daily for 14 days Doxycycline 100 mg by mouth twice daily for 14 days Dressing changes should be performed Monday with Xeroform applied to blistering areas covered with ABD pad and wrapped with Kerlix. Please follow-up with your primary care doctor in the next 1 to 2 weeks Return to the hospital/emergency department if you develop fevers, worsening infection and lower extremity Keep left lower extremity elevated is much as possible Diet: AHA Activity: Ad deysi Followup: OOT,OOT [UNKNOWN] - 1-2 Weeks (PCP: Dr. Charley Suarez, [place], [place]) Time spent managing pt's care (in minutes): 30
== END 2024-01-16 13:28 | disposition home or self-care (01) | DRG 603 ==
LOC: ER 09:17 → ERHOLD 11:37 → 2ND 15:02 → OBSVTOIN 01-10 12:00
PROVIDERS: ADMIT Internal Medicine; ATTEND Hospitalist
DX: L03.116 Cellulitis of left lower limb (principal); N17.9 Acute kidney failure, unspecified; R44.3 Hallucinations, unspecified; E87.6 Hypokalemia; B35.3 Tinea pedis; S90.02XA Contusion of left ankle, initial encounter; T40.2X5A Adverse effect of other opioids, initial encounter; R73.9 Hyperglycemia, unspecified; Z88.6 Allergy status to analgesic agent; Z79.899 Other long term (current) drug therapy
CPT/HCPCS: 36415; 73701; 80048; 80053; 80202; 81001; 83036; 83605; 83735; 84100; 85025; 85610; 85730; 87040; 93005; 96365; 96366; 99285; G0378; J0696; J1644; J1940; J2185; J7030; J7040; J7050; Q9967